=== PATIENT | male | born 1995 | race Caucasian/White ===

== ENCOUNTER 2018-06-05 10:30 | Emergency (ER) | payer OTHER ==
[~2018-06-05] VITALS: Ht 177.8 cm; Wt 90.7 kg
--- NOTE | 2018-06-05 11:01 | PHYS DOC ---
Past History Past Medical History: No Pertinent History Smoking: Quit Less Than 1 Year Alcohol Use: Occasionally Adult General Chief Complaint Chief Complaint: BACK INJURY HPI HPI Patient is a 22 year old male who presents with complaining of back pain. Patient states he was pushing a car for about 5 minutes and felt a pop in his mid back and developed severe pain and shortness of breath. Patient states the pain improved to 7/10 right now and shortness of breath resolved. Patient states the pain getting worse with movement and denies focal neurodeficit and history of back pain. Review of Systems Review of Systems Constitutional: Denies fever or chills [] Eyes: Denies change in visual acuity, redness, or eye pain [] HENT: Denies nasal congestion or sore throat [] Respiratory: Denies cough or shortness of breath [] Cardiovascular: No additional information not addressed in HPI [] GI: Denies abdominal pain, nausea, vomiting, bloody stools or diarrhea [] : Denies dysuria or hematuria [] Musculoskeletal: Reports back pain, denies joint pain [] Integument: Denies rash or skin lesions [] Neurologic: Denies headache, focal weakness or sensory changes [] Endocrine: Denies polyuria or polydipsia [] All other systems were reviewed and found to be within normal limits, except as documented in this note. Allergies Allergies Allergies Coded Allergies Type Severity Reaction Last Updated Verified No Known Drug Allergies 06/05/18 No Physical Exam Physical Exam Constitutional: Well developed, well nourished, mild acute distress, non-toxic appearance. [] HENT: Normocephalic, atraumatic. Eyes: PERRLA, EOMI, conjunctiva normal, no discharge. [] Neck: Normal range of motion, no tenderness, supple, no stridor. [] Cardiovascular:Heart rate regular rhythm, no murmur [] Lungs & Thorax: Bilateral breath sounds clear to auscultation [] Skin: Warm, dry, no erythema, no rash. [] Back: No midline tenderness, no deformity, thoracic paraspinal muscle tenderness , no CVA tenderness. [] Extremities: No tenderness, no cyanosis, no clubbing, ROM intact, no edema. [] Neurologic: Alert and oriented X 3, normal motor function, normal sensory function, no focal deficits noted. [] Psychologic: Affect normal, judgement normal, mood normal. [] EKG EKG [] Radiology/Procedures Radiology/Procedures [][address] [address] IMAGING REPORT Signed PATIENT: ÁLVARO CELIS E ACCOUNT: [id number] : 1995 LOCATION: ER AGE: 22 SEX: M EXAM STATUS: REG ER ORD. PHYSICIAN: SANGITA MEDINA MD REASON: injury PROCEDURE: THORACIC SPINE 3V THORACIC SPINE 3V History: CHEST AND UPPER BACK PAIN S/P INJURY Comparison: None. Findings: 3 views thoracic spine are submitted. Thoracic vertebral body stature and AP alignment are maintained, somewhat limited evaluation of the superior thoracic vertebral bodies on lateral views due to overlying bone and soft tissues. No convincing acute osseous abnormality is identified by radiographs. Impression: 1. No convincing acute osseous abnormality is identified by radiographs. Electronically signed by: Marina Yanez MD (06/05/2018 11:09 AM) [facility] DICTATED AND SIGNED BY: MARINA YANEZ MD DATE: 06/05/18 1103 CC: VALENCAI CRANDALL DO; SANGITA MEDINA MD ~ Course & Med Decision Making Course & Med Decision Making Pertinent Imaging studies reviewed. (See chart for details) Evaluation of patient in ER showed 22-year-old male patient complaining of mid back pain and shortness of breath after pushing a car. Patient had unremarkable physical exam and x-ray of thoracic his pain and chest and treated with ibuprofen in ER and felt better. Plan discharge patient home to diagnose of thoracic myofascial strain. Dragon Disclaimer Dragon Disclaimer This electronic medical record was generated, in whole or in part, using a voice recognition dictation system. Departure Departure: Impression: Primary Impression: Acute thoracic myofascial strain Disposition: 01 HOME, SELF-CARE (at 1129) Condition: IMPROVED Referrals: VALENCIA CRANDALL DO (PCP) Patient Instructions: Thoracic Strain Additional Instructions: Drink plenty of liquids Follow-up with your primary care physician in 3-5 days Return to ER if not getting better Apply ice on affected area Scripts Ibuprofen (IBUPROFEN) 800 Mg Tablet 1 TAB PO TID for pain, #30 TAB Prov: SANGITA MEDINA MD 06/05/18 SANGITA MEDINA MD Jun 05, 2018 11:01
--- NOTE | 2018-06-05 11:11 | RAD ---
CHEST AP ONLY History: CHEST AND UPPER BACK PAIN, status post injury Comparison: None. Findings: Single view of the chest is submitted. There is no infiltrate, pneumothorax, or effusion. The pericardial cardiac silhouette is within normal limits in size. Impression: 1. No acute radiographic abnormality is identified. Electronically signed by: Michael Yanez MD (06/05/2018 11:08 AM) [facility]
--- NOTE | 2018-06-05 11:12 | RAD ---
THORACIC SPINE 3V History: CHEST AND UPPER BACK PAIN S/P INJURY Comparison: None. Findings: 3 views thoracic spine are submitted. Thoracic vertebral body stature and AP alignment are maintained, somewhat limited evaluation of the superior thoracic vertebral bodies on lateral views due to overlying bone and soft tissues. No convincing acute osseous abnormality is identified by radiographs. Impression: 1. No convincing acute osseous abnormality is identified by radiographs. Electronically signed by: Michael Yanez MD (06/05/2018 11:09 AM) [facility]
[2018-06-05] MEDS ORDERED: IBUPROFEN 800 MG TABLET. PO ONE (11:15)
[2018-06-05 11:20] VITALS: BP 118/74
[2018-06-05] MEDS ORDERED: IBUP800T19 PO (11:31)
== END 2018-06-05 11:37 | disposition home or self-care (01) ==
LOC: ER 10:30
DX: S29.012A Strain of muscle and tendon of back wall of thorax, initial encounter (principal); R06.02 Shortness of breath; Z87.891 Personal history of nicotine dependence; X50.9XXA Other and unspecified overexertion or strenuous movements or postures, initial encounter; Y93.89 Activity, other specified; Y92.89 Other specified places as the place of occurrence of the external cause; Y99.8 Other external cause status
CPT/HCPCS: 71045; 72072; 99283